=== PATIENT | female | born 1950 | race Caucasian/White ===

== ENCOUNTER 2019-04-29 18:35 | Inpatient (IN) | payer MEDICARE ==
[2019-04-29 18:58] LABS: #Basophils 0.1 thou/uL (0.0-0.2); #Eosinphils 0.2 thou/uL (0.0-0.7); #Lymphocytes 2.9 thou/uL (1.20-3.40); #Monocytes 0.7 thou/uL (0.11-0.59); #Neutrophils 4.4 thou/uL (1.40-6.50); %Basophils 1.1 % (0.0-1.0); %Eosinophils 2.3 % (0.0-10.0); %Lymphocytes 35.3 % (21.0-51.0); %Monocytes 8.9 % (0.0-10.0); %Neutrophils 52.5 % (42.0-75.0); Hemoglobin 14.3 g/dL (12.0-16.0); Mean Corpuscular HGB CONC 33.3 g/dL (32.0-36.0); Mean Corpuscular Hemoglobin 29.7 pg (27.0-31.0); Mean Corpuscular Volume 89.4 fL (78.0-98.0); Mean Platelet Volume 6.4 fL (7.4-10.4); Platelet Count 422 thou/uL (130-400); RBC Distribution Width 12.9 % (11.5-14.5); Red Blood Cell (RBC) Count 4.82 mill/uL (4.20-5.40); White Blood Cell (WBC) Count 8.3 thou/uL (4.8-10.8)
--- NOTE | 2019-04-29 19:01 | CT ---
CT Brain WO Con: 04/29/2019 12:00 AM CLINICAL HISTORY: Level 1 stroke with right-sided gait instability and strength deficits. IMAGING TECHNIQUE: Multiple CT images were obtained of the brain without IV contrast. COMPARISON: None. FINDINGS: Brain: No acute infarct or hemorrhage is evident. No midline shift. Ventricles: Normal. No hydrocephalus.. Skull: Intact.. Visualized Paranasal sinuses: There is mild mucosal thickening involving a posterior right ethmoid ai r cells.. Mastoid air cells:Clear. Extracranial soft tissues:Normal. IMPRESSION: No acute intracranial abnormality. Findings were called to Dr. Estevez at 6:58 PM on April 29, 2019.
[2019-04-29 19:03] LABS: INR-International Normal Ratio 0.9; PTT 25.3 SEC (22.9-36.1); Prothrombin Time 12.1 SEC (12.0-14.7)
[2019-04-29] MEDS ORDERED: Aspirin Chewable 81 MG TAB ONE (19:06)
[2019-04-29 19:17] LABS: ALT (SGPT) 27 U/L (8-55); AST (SGOT) 29 U/L (5-34); Albumin 4.5 g/dL (3.4-4.8); Alkaline Phosphatase 93 U/L (40-110); Anion Gap 20 mmol/L (10-20); BUN (Urea Nitrogen) 19 mg/dL (9.8-20.1); Bilirubin, Total 0.4 mg/dL (0.2-1.2); CK (CPK) 167 U/L (29-168); Calc. Creatinine Clearance 0 mL/min (70-130); Calcium 9.6 mg/dL (7.8-10.44); Carbon Dioxide 26 mmol/L (23-31); Chloride 96 mmol/L (98-107); Estimated GFR-MDRD 46; Globulin 3.7 g/dL (2.4-3.5); Glucose 175 mg/dL (80-115); Magnesium 1.9 mg/dL (1.6-2.6); Potassium 4.5 mmol/L (3.5-5.1); Protein, Total 8.2 g/dL (6.0-8.3); Sodium 137 mmol/L (136-145)
[2019-04-29 19:23] LABS: Bilirubin Negative (Negative); Blood, Urine Negative (Negative); Clarity Clear (Clear); Glucose, Urine (Dipstick) Normal (Negative); Leukocyte Negative Leu/uL (Negative); Nitrite Negative (Negative); Protein, Urine (Dipstick) Negative (Neg-Trace); Urobilinogen Normal mg/dL (Less than 2)
--- NOTE | 2019-04-29 19:37 | RAD ---
Chest AP view INDICATION: Shortness of breath and right-sided weakness COMPARISON: December 23, 2016 chest 2 view radiograph FINDINGS: Lungs:The lungs are clear Cardiac silhouette:Heart size remains upper limits of normal. Pulmonary vasculature:Normal Pleural spaces:No pleural effusion or pneumothorax is demonstrated. Upper abdomen:No abnormality seen. Osseous structures: No acute osseous abnormality. Additional findings:None. IMPRESSION: No acute cardiopulmonary abnormality.
[2019-04-29] MEDS ORDERED: hydrALAZINE 20 MG/ML VIAL SLOW IVP PRN (22:42)
[2019-04-29] MEDS ORDERED: Acetaminophen 650 MG Suppository PR PRN (22:45)
[2019-04-29] MEDS ORDERED: Ondansetron ODT 4 MG TAB PO PRN (22:45)
[2019-04-29] MEDS ORDERED: Sodium Chloride 0.9% 1,000 ML IV SCH ×2 (22:45→23:01)
[2019-04-29] MEDS ORDERED: Acetaminophen 325 MG TAB PO PRN (22:45)
[2019-04-29] MEDS ORDERED: Ondansetron PF 4 MG/2 ML Vial IVP PRN (22:45)
[2019-04-29] MEDS ORDERED: HumaLOG 300 UNITS/3 ML VIAL SC PRN ×2 (22:47)
[2019-04-29] MEDS ORDERED: Dextrose 50% Abboject 50 ML SYRINGE SLOW IVP PRN (22:47)
[2019-04-29] MEDS ORDERED: Dextrose 5% in Water 1,000 ML IV PRN (22:47)
[2019-04-29 23:18] LABS: Troponin I 0.014 ng/mL (< 0.028)
[2019-04-29 23:20] LABS: Amphetamine Not Detected (NotDetected); Barbiturates Screen Not Detected (NotDetected); Benzodiazepine Screen Not Detected (NotDetected); Cocaine Metabolite Screen Not Detected (NotDetected); Medtox Control Line Valid? VALID (VALID); Medtox Reader # READER 4; Methadone Not Detected (NotDetected); Methamphetamine Not Detected (NotDetected); Opiate Screen Not Detected (NotDetected); Oxycodone Screen Not Detected (NotDetected); Phencyclidine (PCP) Not Detected (NotDetected); THC/Cannabinoid Screen Not Detected (NotDetected); Tricyclic Screen Not Detected (NotDetected)
--- NOTE | 2019-04-30 00:11 | HP ---
CHIEF COMPLAINT: Right hand numbness and weakness. HISTORY OF PRESENT ILLNESS: Ms. Lebron is a 69-year-old woman who presents after experiencing sudden onset right hand numbness and weakness since she was using her phone. She states she felt as though she had no control of her hand and could not vulcanizer operator her phone or her jacket. She states her hand felt entirely numb and not her own. The patient is unsure how long this lasted, but according to her family, had also had an abnormal gait. The patient denies any other numbness or tingling elsewhere. States she was at a Halloween event with her grandchildren and children when this happened. She was brought to the hospital by her son. Shortly after arrival, her symptoms had resolved. In the emergency department, she was noted to have an elevated blood pressure of 169/84 on arrival. She had an EKG done showing normal sinus rhythm with a heart rate of 90. She was given aspirin [address] imaging of the head, which showed no acute intracranial abnormality. A chest x-ray was done showing no acute cardiopulmonary process. The patient was reported to still be "wobbly" on her feet when transferring from the stretcher to the bed on the floor. Otherwise, NIH done at bedside was 0. LABORATORY STUDIES: Done in the emergency department showed a normal full blood count. Potassium was 4.5, anion gap 20, BUN 19, creatinine 1.17, GFR 46, calcium 9.6. LFTs unremarkable. CK 167. Troponin negative x2. Urinalysis was done and negative. REVIEW OF SYSTEMS: The patient states she has felt odd in the last few days with having sudden feeling of claustrophobia at night and having to get up and go to the living room. Has also had episodes of dizziness lasting seconds while lying in bed. Denies any associated nausea or vomiting. Denies any double vision. Reports having a mild headache at this present time. All other review of systems negative. PAST MEDICAL HISTORY: 1. Hypertension. 2. Hyperlipidemia. 3. Aortic stenosis for which she sees Dr. Navarro. 4. Diabetes mellitus. PAST SURGICAL HISTORY: 1. Bilateral knee replacements. 2. Back surgery x2. SOCIAL HISTORY: The patient lives with her . Denies any alcohol consumption, tobacco use, or illicit drug use. FAMILY HISTORY: Noncontributory. ALLERGIES: LATEX AND DIAZEPAM. CURRENT MEDICATIONS: 1. Amlodipine. 2. Atorvastatin. 3. Vitamin D3. 4. Hydrochlorothiazide. 5. Lisinopril. 6. Multivitamin. 7. Sertraline. PHYSICAL EXAMINATION: GENERAL: The patient appears well developed, well nourished, is in no acute distress. VITAL SIGNS: Temperature 99.1, pulse 96, respirations 16, O2 saturation 97% on room air, blood pressure 182/80. HEENT: Normocephalic and atraumatic. Pupils are equal, round, and reactive to light. Sclerae without icterus. Extraocular movements intact. No nystagmus present. Oropharynx is clear. NECK: Supple without lymphadenopathy. LUNGS: Clear to auscultation bilaterally without wheezes, rales, or rhonchi. CARDIAC: Regular rate and rhythm. Audible murmur on exam. ABDOMEN: Soft, nontender, nondistended. Normoactive bowel sounds present. EXTREMITIES: No lower leg swelling or edema. NEUROLOGIC: Alert and oriented x3. No neuro deficits on exam. Sensation intact. Power 5/5 in both upper and lower extremities. IMPRESSION AND PLAN: Ms. Lebron is a pleasant 69-year-old woman who has been referred for management of the followin. Suspected transient ischemic attack. The patient with sudden right hand numbness and weakness that has resolved and a staggering gait that has nearly improved. CT of the head was unremarkable. We will obtain a CT angiogram of the head and neck. She does have an elevated creatinine of 1.47 and GFR of 46. I do not see that any IV fluids are given in the emergency department. Given contrast necessary for CT angiogram, we will give IV fluids. Echo ordered as well as Neuro consult. Fasting lipid panel in the morning. Continue to monitor. Bedside dysphagia screening completed and normal as per nurse. 2. Acute kidney injury. The patient with creatinine of 1.17, and GFR 46. Previously, her creatinine was 0.70 and GFR was 84 back in 2016. Again, we will give IV fluids. 3. Hypertension. Allow for permissive hypertension. P.r.n. hydralazine ordered with parameters. 4. Headache. We will give Tylenol. 5. Diabetes mellitus. Monitor glucose. Insulin sliding scale ordered. 6. GI prophylaxis. Famotidine 20 mg IV b.i.d. 7. Deep venous thrombosis prophylaxis. Mechanical SCDs. 8. Code status full. Her surrogate decision maker is her , Grabiel Lebron. 9. We will reconcile home medications once verified. The patient's case was discussed with the attending who agrees with the plan of care as described above. Job ID: [id number]
[2019-04-30 00:18] VITALS: BMI 34.2
[2019-04-30 01:37] LABS: Troponin I 0.011 ng/mL (< 0.028)
[2019-04-30 04:58] LABS: #Basophils 0.1 thou/uL (0.0-0.2); #Eosinphils 0.2 thou/uL (0.0-0.7); #Lymphocytes 2.7 thou/uL (1.20-3.40); #Monocytes 0.8 thou/uL (0.11-0.59); #Neutrophils 3.8 thou/uL (1.40-6.50); %Basophils 0.9 % (0.0-1.0); %Eosinophils 2.7 % (0.0-10.0); %Monocytes 10.4 % (0.0-10.0); Mean Corpuscular HGB CONC 33.1 g/dL (32.0-36.0); Mean Corpuscular Hemoglobin 29.8 pg (27.0-31.0); Mean Corpuscular Volume 90.1 fL (78.0-98.0); Mean Platelet Volume 6.3 fL (7.4-10.4); Platelet Count 370 thou/uL (130-400); RBC Distribution Width 12.8 % (11.5-14.5); Red Blood Cell (RBC) Count 4.35 mill/uL (4.20-5.40); White Blood Cell (WBC) Count 7.6 thou/uL (4.8-10.8)
[2019-04-30 05:20] LABS: Anion Gap 13 mmol/L (10-20); BUN (Urea Nitrogen) 18 mg/dL (9.8-20.1); Calc. Creatinine Clearance 104 mL/min (70-130); Calcium 9.1 mg/dL (7.8-10.44); Carbon Dioxide 28 mmol/L (23-31); Cardiac Risk 4.3 (Less than 4.5); Chloride 99 mmol/L (98-107); Cholesterol 176 mg/dl (< 200 Desired); Estimated GFR-MDRD 72; Glucose 154 mg/dL (80-115); HDL Cholesterol 41 mg/dL (>60 Neg Risk); LDL Cholesterol, Calculated 103 mg/dL; Potassium 3.8 mmol/L (3.5-5.1); Sodium 136 mmol/L (136-145); Triglycerides 161 mg/dL (Less than 150)
--- NOTE | 2019-04-30 08:01 | CT ---
PRELIMINARY REPORT/[facility]/EMERGENCY AFTER HOURS PROCEDURE: PROCEDURE INFORMATION: Exam: CT Angiography Head Without And With Contrast Exam date and time: 04/30/2019 3:00 AM Clinical history: 69 years old, female; Weakness; Patient HX: Tia/cva ; shopping at store when right sided gait instability and strength defecits. TECHNIQUE: Imaging protocol: Computed tomographic angiography of the head without and with intravenous contrast. 3D rendering: MIP reconstructed images were created and reviewed. Other technique: STROKE PROTOCOL was implemented. COMPARISON: No relevant prior studies available. FINDINGS: Right internal carotid artery: There is atherosclerotic calcification of the intracranial carotid art eries. No aneurysm. 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 A mcclure nt anterior communicating artery is noted. Right middle cerebral artery: Unremarkable. No occlusion or significant stenosis. No aneurysm. Right posterior cerebral artery: Right GLOBAL COORDINATOR fills via a prominent right posterior communicating artery , normal variant. Right vertebral artery: Unremarkable. No occlusion or significant stenosis. No aneurysm. Left internal carotid artery: There is atherosclerotic calcification of the intracranial carotid jose chloe. No aneurysm. Left anterior cerebral artery: Unremarkable. No occlusion or significant stenosis. No aneurysm. Left middle cerebral artery: Unremarkable. No occlusion or significant stenosis. No aneurysm. Left posterior cerebral artery: Unremarkable. No occlusion or significant stenosis. No aneurysm. Left vertebral artery: Unremarkable. No occlusion or significant stenosis. No aneurysm. Basilar artery: Unremarkable. No occlusion or significant stenosis. No aneurysm. HEAD: Brain: Unremarkable. No hemorrhage. No significant white matter disease. No edema. Ventricles: Normal. No ventriculomegaly. Bones/joints: Unremarkable. No acute fracture. Sinuses: Visualized sinuses are normal. No fluid levels. Mastoid air cells: Visualized mastoids are normal. No mastoid effusion. Soft tissues: Unremarkable. IMPRESSION: 1. No large intracranial artery aneurysm, dissection or occlusion. 2. No acute intracranial hemorrhage. ASSESSMENT: ASPECTS ([place] Stroke Program Early CT Score) is 10. PROCEDURE INFORMATION: Exam: CT Angiography Neck With Contrast Exam date and time: 04/30/2019 3:00 AM Clinical history: 69 years old, female; Weakness; Patient HX: Tia/cva ; shopping at store when right sided gait instability and strength defecits. TECHNIQUE: Imaging protocol: Computed tomography angiography of the neck with intravenous contrast. 3D rendering : MIP reconstructed images were created and reviewed. COMPARISON: No relevant prior studies available. FINDINGS: VASCULATURE: Right common carotid artery: Unremarkable. No stenosis. No dissection or occlusion. Right internal carotid artery: Unremarkable extracranial segment. No stenosis. No dissection or occlu jillian. Right external carotid artery: Unremarkable. No occlusion or stenosis of the origin. Right vertebral artery: Unremarkable. No stenosis. No dissection or occlusion. Left common carotid artery: Unremarkable. No stenosis. No dissection or occlusion. Left internal carotid artery: There is mild atherosclerotic calcification at the LEFT carotid bulb re sulting in mild stenosis at the origin of the LEFT internal carotid artery. Left external carotid artery: Unremarkable. No occlusion or stenosis of the origin. Left vertebral artery: Unremarkable. No stenosis. No dissection or occlusion. NECK: Bones/joints: The cervical spine demonstrates moderate degenerative changes at multiple levels. Soft tissues: Normal. No significant soft tissue swelling. IMPRESSION: No acute vascular pathology. COMMENT: Reference per NASCET criteria for degree of stenosis: Mild: less than 50% stenosis. Moderate: 50- 69% stenosis. Severe: 70-94% stenosis. Near occlusion: 95-99% stenosis. Thank you for allowing us to participate in the care of your patient. Dictated and Authenticated by: Anand Martin MD 04/30/2019 3:33 AM Central Time ([place] & [place]) FINAL REPORT CT ANGIOGRAM HEAD AND NECK WITH AND WITHOUT CONTRAST: INDICATION: Right-sided gait instability and strength deficit COMPARISON: None TECHNIQUE: CT angiogram of the head and neck are performed in the axial plane. Three-dimensional reformatted yady ges are submitted for interpretation. FINDINGS: At the level of the [place], there is no significant stenosis, aneurysm or occlusion. Diminu tive right A1 segment likely represents congenital variant. Patent ACOM is noted. There is no significant stenosis with regards to the cervical carotid arteries based upon NASCET crit eria. Visualized brain parenchyma and soft tissue neck structures are unremarkable. IMPRESSION: 1. This report is in agreement with the preliminary report by [facility]. 2. No significant vascular pathology in the cervical carotid arteries or at the level of [place]. Transcribed Date/Time: 04/30/2019 8:13 AM
[2019-04-30] MEDS ORDERED: Aspirin Chewable 81 MG TAB PO SCH (09:00)
[2019-04-30] MEDS ORDERED: Aspirin 81 mg Enteric Coated Tablet PO SCH (09:00)
[2019-04-30] MEDS ORDERED: Famotidine/PF 20 mg/2ml Vial SLOW IVP SCH (09:00)
[2019-04-30] MEDS: Famotidine 20 MG TAB PO SCH (09:50)
[2019-04-30] MEDS ORDERED: Iopamidol 370 76% 100 ML VIAL ONE (12:00)
[2019-04-30] MEDS ORDERED: Lorazepam 2 MG/ML VIAL SLOW IVP SCH ×2 (12:30→13:15)
--- NOTE | 2019-04-30 14:48 | CON ---
DATE OF TELEMEDICINE CONSULTATION: 04/30/2019 CHIEF COMPLAINT: Right-sided numbness. HISTORY OF PRESENT ILLNESS: The patient is a 69-year-old left-handed lady who reports currently all she has is a headache. She was having at a Halloween caravan with her family and she could not nut picker her phone with her right hand. She went outside, called her and he was walking towards her. Her son decided he needed to bring her to the ER. Her numbness and weakness lasted 15 to 20 minutes. She is still feeling tingling and some headache today. Usually she takes 81 mg of aspirin. PREVIOUS MEDICAL HISTORY: She has aortic stenosis, hypertension, hyperlipidemia , diabetes, and she is on metformin. PAST SURGICAL HISTORY: She had two knee replacements and she had back surgery. FAMILY HISTORY: One brother is 75, he has hypertension, multiple medical issues , and chronic back pain. She has a 65-year-old sister who is hypochondriac. Her parents and there is no significant medical history with her parents. She has four sons, all of them are healthy. They age from 49 to 34 years of age. No family history of stroke. ALLERGIES: LATEX AND DIAZEPAM. CURRENT MEDICATIONS: At home 1. Amlodipine. 2. Atorvastatin. 3. Vitamin D3. 4. Hydrochlorothiazide. 5. Lisinopril. 6. Multivitamin. 7. Sertraline. REVIEW OF SYSTEMS: PULMONARY: Negative for shortness of breath and cough. GI: Negative for any nausea, vomiting, or diarrhea. OPHTHALMOLOGIC: Negative for any vision problems in either. URINARY: Negative for bladder issues. DERMATOLOGIC: Negative for any skin lesions. NEUROLOGIC: Positive for numbness. LABORATORY DATA: White count is 7.6, hemoglobin 13, hematocrit 39.2, platelet count 370. Chemistry: Sodium 136, potassium 3.8, chloride 99, carbon bicarb 28, BUN 18, creatinine 0.79, glucose 154. Urine tox screen is negative. Urinalysis is also negative. Her CT angiogram did not show any evidence of vaso-occlusive disease on the CTA of the head and neck area. MRI is pending. PHYSICAL EXAMINATION: VITAL SIGNS: Temperature 97.4, pulse is 81, blood pressure 156/63, O2 saturation 97. GENERAL APPEARANCE: Well-built, well-nourished lady. CHEST: Clear vesicular breathing. CARDIOVASCULAR: S1, S2 heard. No murmurs. ABDOMEN: Soft, nontender. NEUROLOGIC: Higher intellectual functions normal. Orientation to time and place and person. Cranial nerves, normal extraocular movements. Face is normal bilaterally to touch. No facial asymmetry noted. Tongue midline. No atrophy noted. Normal elevation of palate. Normal hearing to finger rub bilaterally. Pupils are 2 mm, reactive. Motor bulk normal. Tone normal. Strength 5/5 in iliopsoas, hamstrings, quadriceps, ankle dorsiflexion, plantar flexion, deltoid, biceps, triceps, wrist extension and flexion, finger extension and flexion bilaterally and sensory examination normal to touch bilaterally. Cerebellar, normal [id number] and [id number]. Deep tendon reflexes 2+ throughout. IMPRESSION: The patient is a 69-year-old lady with sudden onset of right-sided numbness and incoordination and difficulty using her right hand. All her symptoms lasted 15 to 20 minutes. She still has some residual tingling and headache. This time, her examination is normal. Diagnosis is likely transient ischemic attack. She is currently pending MRI. RECOMMENDATIONS: Please complete her MRI of the brain and echocardiogram. Increase aspirin to 325 mg once daily along with statin. Please call me if you have any further questions. Job ID: [id number] [facility]
--- NOTE | 2019-04-30 15:51 | MRI ---
BRAIN MRI WITHOUT CONTRAST: HISTORY: Hit ischemic attack. Gait instability. Right-sided weakness. COMPARISON: None. FINDINGS: Calvarial marrow signal intensity: Appropriate T1 signal. Gradient echo sequence: No hemorrhage. Brain parenchyma: No mass, mass effect or midline shift. Brain volume, age-appropriate. Cortical decker-white matter differentiation: Preserved. Restricted diffusion: Small foci of cortical restricted diffusion involving the left precentral sulcu s and left parietal lobe. Additional areas of restricted diffusion are noted in the posterior left mora radiata. White matter signal intensities:No significant T2 or FLAIR white matter hyperintensities. Sinuses: Adequate aeration of the paranasal sinuses and mastoid air cells. IMPRESSION: Small foci of restricted diffusion involving the left white matter and left cortex as described above . Distribution suggests possible embolic phenomenon of uncertain origin. There is calcified plaque involving the left carotid bifurcation and proximal left internal carotid artery. Definite soft plaqu e is not appreciated. Correlate for possible cardiogenic source. Transcribed Date/Time: 04/30/2019 3:56 PM
[2019-04-30] MEDS ORDERED: Atorvastatin Calcium 40 MG TAB PO SCH (21:00)
--- NOTE | 2019-04-30 22:11 | PDOC.HOSPP ---
- Subjective Subjective: Doing well. Wants to go home. All symptoms have resolved. - Objective Vital Signs & Weight: Vital Signs (12 hours) Temp Pulse Resp BP BP Pulse Ox 04/30/19 20:00 97.5 F L 80 18 181/65 H 99 04/30/19 15:58 97.5 F L 86 16 153/69 H 97 04/30/19 11:48 97.4 F L 81 16 156/63 H 97 Weight Weight 218 lb 9.6 oz I&O: 04/29/19 04/30/19 05/01/19 06:59 06:59 06:59 Intake Total 480 Balance 480 Result Diagrams: 04/30/19 04:43 04/30/19 04:43 Additional Labs: Accuchecks 04/30/19 04/30/19 04/30/19 19:18 16:46 11:11 POC Glucose 143 H 177 H 133 H 04/30/19 06:22 POC Glucose 123 H Hospitalist ROS - Medication Medications: Active Medications Generic Name Dose Route Start Last Admin Trade Name Nupur PRN Reason Stop Dose Admin Aspirin 81 mg 04/30/19 09:00 04/30/19 09:50 Ecotrin PO 81 mg DAILY J CARLOS Administration Famotidine 20 mg 04/30/19 09:00 04/30/19 09:50 Pepcid PO 20 mg DAILY J CARLOS Administration Sodium Chloride 10 ml 04/30/19 09:00 04/30/19 09:50 Flush - Normal Saline IVF 10 ml Q12HR J CARLOS Administration - Exam General Appearance: NAD, awake alert Neck: supple, symmetric, no JVD, no thyromegaly, no lymphadenopathy, no carotid bruit Heart: RRR, no gallops, no rubs, normal peripheral pulses, murmur present ( Systolic.), II/IV Respiratory: CTAB, no wheezes, no rales, no ronchi, normal chest expansion, no tachypnea, normal percussion Gastrointestinal: soft, non-tender, non-distended Skin: normal turgor Neurological: cranial nerve grossly intact, no focal deficits Musculoskeletal: normal tone, normal strength, no muscle wasting Psychiatric: normal affect, normal behavior, A&O x 3 Hosp A/P (1) CVA (cerebral vascular accident) Code(s): I63.9 - CEREBRAL INFARCTION, UNSPECIFIED Status: Acute (2) Aortic stenosis Code(s): I35.0 - NONRHEUMATIC AORTIC (VALVE) STENOSIS Status: Acute (3) HLD (hyperlipidemia) Code(s): E78.5 - HYPERLIPIDEMIA, UNSPECIFIED Status: Acute (4) HTN (hypertension) Code(s): I10 - ESSENTIAL (PRIMARY) HYPERTENSION Status: Acute - Plan Long discussion with the patient. The MRI shows a new small L CVA. All symptoms resolved. Report indicates concern for possible embolic event and queries a cardiac source. Echo has moderate Ao stenosis. Will continue to monitor overnight. Keep on full dose aspirin. Cardiology consult and Neuro consult follow up.
[2019-05-01] MEDS ORDERED: Non-Formulary Item 1 EACH (Irbesartan [Irbesartan] 300 MG) PO SCH (09:00)
[2019-05-01] MEDS ORDERED: Hydrochlorothiazide 25 MG TAB PO SCH (09:00)
[2019-05-01] MEDS ORDERED: Amlodipine 5 MG TAB PO SCH (09:00)
[2019-05-01] MEDS ORDERED: Aspirin 81 mg Enteric Coated Tablet PO SCH (09:00)
[2019-05-01] MEDS ORDERED: Losartan 25 MG TAB PO SCH (09:00)
[2019-05-01] MEDS ORDERED: Non-Formulary Item 1 EACH (Hydrochlorothiazide [Hydrochlorothiazide] 50 MG) PO SCH (09:00)
[2019-05-01] MEDS: Famotidine 20 MG TAB PO SCH (10:21)
[2019-05-01 12:03] VITALS: BP 140/77; TEMP 98.3
--- NOTE | 2019-05-01 14:24 | CON ---
DATE OF CONSULTATION: HISTORY OF PRESENT ILLNESS: The patient is a 69-year-old woman, who presented with right arm weakness and numbness. The patient has a previous history of aortic stenosis. She underwent a cardiac evaluation in October of 2015. She was found to have normal left ventricular systolic function with normal coronary arteries. The patient has been following with Dr. Navarro for aortic stenosis. She was in her usual state of health when she acutely felt weakn and numbness in her right arm. The patient was brought to the emergency room. The patient was diagnosed with a TIA. The patient denied having any palpitations or chest discomfort. PAST MEDICAL HISTORY: 1. Aortic stenosis. 2. Hypertension. 3. Dyslipidemia. 4. Diabetes mellitus. PAST SURGICAL HISTORY: Knee replacement and back surgery. SOCIAL HISTORY: Nonsmoker. ALLERGIES: LATEX AND DIAZEPAM. MEDICATION ON ADMISSION: See nursing list. REVIEW OF SYSTEMS: Ten-point system otherwise unremarkable. PHYSICAL EXAMINATION: GENERAL: Obese woman, in no acute distress. VITAL SIGNS: Her blood pressure is 140/77. NECK: No jugular venous distention. No carotid bruits. LUNGS: Clear to auscultation. HEART: Regular rate and rhythm. Normal S1, S2. 2/6 systolic murmur. ABDOMEN: Nondistended. EXTREMITIES: Showed no edema. Vascular and radial pulses are 2+. LABORATORY DATA: Her sodium was 136, potassium 3.8, chloride 99, bicarbonate 28 , BUN 18, creatinine 0.79. Her white blood cell count was 7.6, hemoglobin 13.0, hematocrit 39.2, platelets are 370. Her EKG revealed normal sinus rhythm with a nonspecific ST abnormality. MRA revealed no evidence of carotid artery disease. Echocardiogram revealed normal left ventricular ejection fraction of 55% to 60% with moderate to severe aortic stenosis. No thrombus was noted. IMPRESSION: 1. Transient ischemic attack. 2. Aortic stenosis. 3. History of normal coronary arteries. 4. Hypertension. 5. Diabetes mellitus. 6. Dyslipidemia. 7. Obesity. This patient presented with a transient ischemic attack. She was evaluated by Neurology who apparently recommended that she increase her aspirin to 325. There is no evidence of thrombus noted on her echocardiogram. There is no evidence of any arrhythmias. We would recommend follow up with a neurologist. We will also recommend the patient to have an outpatient monitor to evaluate for any significant arrhythmias. We will follow this patient with you. Job ID: [id number] [facility]
--- NOTE | 2019-05-04 00:23 | PQF ---
MEÑO TIDWELL DAVID R MD [id number] [address] [place] [address] [id number] CLINICAL DOCUMENTATION CLARIFICATION FORM: POST DISCHARGE Addendum to original discharge summary date: ____ Late entry note date: __ DATE: 05/04/19 ATTN: Anand Bey Please exercise your independent, professional judgment in responding to the clarification form. Clinical indicators are provided on the bottom of this form for your review Please check appropriate box(s): Conflicting documentation was noted in the Medical Record, please clarify if patient is being treated/monitored for: [ ] TIA [x ] Acute CVA [ ] Other diagnosis [ ] Unable to determine In addition, please specify: Present on Admission (POA): [ x ] Yes [ ] No [ ] Unable to determine For continuity of documentation, please document condition throughout progress notes and discharge summary. Thank You. CLINICAL INDICATORS - SIGNS / SYMPTOMS/ LABS H&P p1 04/29 Dr Pham Presents after experiencing sudden onset right hand numbness and weakness since she was using her phone H&P p1 04/29 Dr Pham In ED, she was noted to have an elevated BP of 169/84 on arrival H&P p2 04/29 Dr Pham Suspect transient sichemic attack H&P p2 04/29 Dr Pham The patient sudden right hand numbnaess andweakness that has resolved and staggering gait has damon improved H&P p3 04/[address] head was unremarkable Hospitalist PN p3 04/30 Dr Redman MRU shows a new small L CVA. All symptoms resolved RISK FACTORS H&P p1 04/29 - 69-year-old woman H&P p1 04/29 - Hypetension H&P p1 04/29 - Hyperlipidemia TREATMENT H&P p3 04/[address] angiogram Neurologist Consult 04/30 Rosemary Bradford Neurosurgeon Consult 05/01 Dr Edge Hospitalist PN p3 04/30 Keep on full dose of Aspirin (This form is maintained as a part of the permanent medical record) 2014 [employer], [employer]. All Rights Reserved [email or web address] [not provided] [email or web address]
== END 2019-05-01 16:00 | disposition home or self-care (01) | DRG 65 ==
LOC: ERS 18:35 → 2SE 21:57
PROVIDERS: ADMIT Internal Medicine; ATTEND Internal Medicine
DX: I63.9 Cerebral infarction, unspecified (principal); N17.9 Acute kidney failure, unspecified; I10 Essential (primary) hypertension; E11.9 Type 2 diabetes mellitus without complications; Z96.659 Presence of unspecified artificial knee joint; I35.0 Nonrheumatic aortic (valve) stenosis; E78.5 Hyperlipidemia, unspecified; E66.9 Obesity, unspecified; Z68.34 Body mass index [BMI] 34.0-34.9, adult; Z79.899 Other long term (current) drug therapy; R20.0 Anesthesia of skin; R29.700 NIHSS score 0; R40.2362 Coma scale, best motor response, obeys commands, at arrival to emergency department; R40.2142 Coma scale, eyes open, spontaneous, at arrival to emergency department; R40.2252 Coma scale, best verbal response, oriented, at arrival to emergency department
CPT/HCPCS: 36415; 36416; 70450; 70496; 70498; 70551; 71045; 80048; 80053; 80061; 80306; 81003; 82550; 83735; 83880; 84443; 84484; 85025; 85610; 85730; 93005; 93306; J2060; Q9967

== ENCOUNTER 2020-05-10 10:40 | Outpatient (CLI) | payer MEDICARE ==
[2020-05-10 13:45] LABS: #Basophils 0.1 10x3/uL (0.0-0.2); #Eosinphils 0.2 10x3/uL (0.0-0.5); #Monocytes 0.8 10x3/uL (0.0-1.1); #Neutrophils 6.4 10x3/uL (1.5-8.4); %Basophils 0.9 % (0.0-2.0); %Eosinophils 2.1 % (0.0-6.0); %Lymphocytes 22.9 % (18.0-47.0); %Monocytes 7.9 % (0.0-10.0); %Neutrophils 65.9 % (40.0-75.0); Hemoglobin 13.9 g/dL (12.0-16.0); Mean Corpuscular Hemoglobin 29.5 PG (27.0-33.0); Mean Corpuscular Volume 89.4 fl (80.0-100.0); Mean Platelet Volume 8.9 fl (7.4-10.4); Platelet Count 400 10x3/uL (130-400); RBC Distribution Width 14.2 % (11.5-14.5); Red Blood Cell (RBC) Count 4.71 10x6/uL (3.90-5.20); White Blood Cell (WBC) Count 9.7 10x3/uL (4.5-11.0)
[2020-05-10 14:01] LABS: ALT (SGPT) 28 U/L (8-55); AST (SGOT) 18 U/L (5-34); Albumin 4.3 g/dL (3.4-4.8); Alkaline Phosphatase 75 U/L (40-110); Anion Gap 18 mmol/L (10-20); BUN (Urea Nitrogen) 14 mg/dL (9.8-20.1); Bilirubin, Total 0.5 mg/dL (0.2-1.2); Calc. Creatinine Clearance 0 mL/min (70-130); Calcium 9.5 mg/dL (7.8-10.44); Carbon Dioxide 27 mmol/L (23-31); Chloride 97 mmol/L (98-107); Estimated GFR-MDRD 79; Globulin 2.9 g/dL (2.4-3.5); Glucose 97 mg/dL (83-110); Potassium 4.3 mmol/L (3.5-5.1); Protein, Total 7.2 g/dL (6.0-8.3); Sodium 138 mmol/L (136-145)
[2020-05-11 12:09] LABS: SARS-CoV-2 MS2 Positive; SARS-CoV-2 N Gene Negative; SARS-CoV-2 S Gene Negative; SARS-CoV-2 by NAA Not Detected (NotDetected); SARS-CoV-2 orf1ab Negative
== END 2020-05-10 10:41 | disposition home or self-care (01) ==
LOC: LABBT 10:40
PROVIDERS: ATTEND Internal Medicine Cardiovascular Disease
DX: Z01.812 Encounter for preprocedural laboratory examination (principal); I35.0 Nonrheumatic aortic (valve) stenosis; Z20.828 Contact with and (suspected) exposure to other viral communicable diseases
CPT/HCPCS: 80053; 85025; U0003; 87635

== ENCOUNTER 2020-05-15 05:53 | Day surgery (SDC) | payer MEDICARE ==
[2020-05-12 12:49] VITALS: BMI 36.8
[2020-05-15] MEDS ORDERED: Iopamidol 370 76% 100 ML VIAL ONE (15:05)
== END 2020-05-15 13:55 | disposition home or self-care (01) ==
LOC: CCL 05:53
PROVIDERS: ATTEND Internal Medicine Cardiovascular Disease
PROC: 4A023N7 Measurement of Cardiac Sampling and Pressure, Left Heart, Percutaneous Approach (ICD-10-PCS; principal; 2020-05-15)
PROC: B2111ZZ Fluoroscopy of Multiple Coronary Arteries using Low Osmolar Contrast (ICD-10-PCS; 2020-05-15)
DX: I25.10 Atherosclerotic heart disease of native coronary artery without angina pectoris (principal); I35.0 Nonrheumatic aortic (valve) stenosis; I10 Essential (primary) hypertension; E78.5 Hyperlipidemia, unspecified; E11.9 Type 2 diabetes mellitus without complications; G47.33 Obstructive sleep apnea (adult) (pediatric); Z79.01 Long term (current) use of anticoagulants; Z79.84 Long term (current) use of oral hypoglycemic drugs; Z79.899 Other long term (current) drug therapy; Z86.73 Personal history of transient ischemic attack (TIA), and cerebral infarction without residual deficits; Z88.8 Allergy status to other drugs, medicaments and biological substances; Z91.040 Latex allergy status
CPT/HCPCS: 76942; 93457; J1644; Q9967

== ENCOUNTER 2020-07-12 09:25 | Outpatient (CLI) | payer MEDICARE ==
--- NOTE | 2020-07-12 11:57 | CT ---
CT NECK SOFT TISSUES WITH CONTRAST: DATE: 07/12/2020. HISTORY: A 70-year-old female with ICD-10: K11.20, sialadenitis of submandibular gland. Left jaw pain. FINDINGS: No high-grade DJD of TMJs. No fracture or destructive osseous lesion involving mandible or maxilla. No dental abscess identified. No periapical osseous lucencies in upper or lower jaw. Bilateral submandibular glands are symmetrically normal in size, density, and enhancement. No surrou nding fat stranding. No evidence of sialadenitis or sialolithiasis, or ectasia of Stensen's ducts or Otero's ducts. There are calcifications in the right palatine tonsil. Bilateral palatine tonsils are symmetrically mildly enlarged. No enlargement of lingual tonsil or adenoids. The submandibular, parotid, carotid, parapharyngeal, it network architect, sublingual, retropharyngeal, periver tebral, and posterior cervical, spaces, are unremarkable. No gross consolidation at lung apices. Unremarkable larynx. Nonspecific right thyroid nodules. Multilevel high-grade facet DJD bilaterally, right worse than left. Degenerative disk disease at mid and lower levels. No cervical lymphadenopathy. Bilateral tympanomastoid cavities are grossly clear. There is opacification of some of the right posterior ethmoid air cells. The rest of the paranasal s inuses are grossly clear. IMPRESSION: 1. No pathology of submandibular glands identified. 2. Bilaterally symmetrical enlargement of palatine tonsils. 3. Cervical spondylosis. POS: [facility]
[2020-07-12] MEDS ORDERED: Iopamidol-370 76% 500 ML 1 ML ONE (14:04)
== END 2020-07-12 09:26 | disposition home or self-care (01) ==
LOC: BICCT 09:25
PROVIDERS: ATTEND Otolaryngology Plastic Surgery within the Head & Neck
DX: K11.20 Sialoadenitis, unspecified (principal); M47.812 Spondylosis without myelopathy or radiculopathy, cervical region; J35.1 Hypertrophy of tonsils
CPT/HCPCS: 70491; 82565

== ENCOUNTER 2020-12-06 13:51 | Outpatient (CLI) | payer MEDICARE | END 2020-12-06 13:52 | disposition home or self-care (01) | LOC: BICMAMMO 13:51 | PROVIDERS: ATTEND Obstetrics & Gynecology | DX: Z12.31 Encounter for screening mammogram for malignant neoplasm of breast (principal); Z80.3 Family history of malignant neoplasm of breast; Z91.89 Other specified personal risk factors, not elsewhere classified | CPT/HCPCS: 77063; 77067 ==

== ENCOUNTER 2021-01-04 10:23 | Outpatient (CLI) | payer MEDICARE | END 2021-01-04 10:24 | disposition home or self-care (01) | LOC: BICRAD 10:23 | PROVIDERS: ATTEND Physician Assistant | DX: R06.02 Shortness of breath (principal) | CPT/HCPCS: 36415; 71046; 80053; 83880; 84443; 85025; 85379 ==

== ENCOUNTER 2021-02-10 18:57 | Observation (INO) | payer MEDICARE ==
[2021-02-10] MEDS ORDERED: Lidocaine 1% (PF) 30 ML VIAL ONE (19:15)
[2021-02-10] MEDS ORDERED: Morphine 4 MG/ML VIAL ONE ×2 (19:35→21:05)
[2021-02-10] MEDS ORDERED: Ondansetron PF 4 MG/2 ML Vial ONE (19:36)
[2021-02-10] MEDS ORDERED: Propofol 1,000 MG/100 ML VIAL IV ONE ×2 (20:07→20:08)
[2021-02-10 21:06] LABS: #Eosinphils 0.1 thou/uL (0.0-0.7); #Monocytes 0.6 thou/uL (0.11-0.59); #Neutrophils 11.7 thou/uL (1.40-6.50); %Basophils 0.4 % (0.0-1.0); %Eosinophils 0.4 % (0.0-10.0); %Lymphocytes 7.5 % (21.0-51.0); %Monocytes 4.6 % (0.0-10.0); %Neutrophils 87.1 % (42.0-75.0); Hemoglobin 12.2 g/dL (12.0-16.0); Mean Corpuscular Hemoglobin 29.1 pg (27.0-31.0); Mean Platelet Volume 6.6 fL (7.4-10.4); Platelet Count 309 thou/uL (130-400); RBC Distribution Width 13.6 % (11.5-14.5); Red Blood Cell (RBC) Count 4.18 mill/uL (4.20-5.40); White Blood Cell (WBC) Count 13.5 thou/uL (4.8-10.8)
[2021-02-10 21:15] LABS: INR-International Normal Ratio 1.1; Prothrombin Time 14.2 sec (12.0-14.7)
[2021-02-10 21:16] LABS: PTT 29.6 sec (22.9-36.1)
[2021-02-10] MEDS ORDERED: Dextrose 5% in Water 1,000 ML IV PRN (21:27)
[2021-02-10] MEDS ORDERED: Dextrose 50% Abboject 50 ML SYRINGE SLOW IVP PRN (21:27)
[2021-02-10] MEDS ORDERED: Ondansetron PF 4 MG/2 ML Vial IVP PRN (21:27)
[2021-02-10 21:28] LABS: ALT (SGPT) 28 U/L (8-55); AST (SGOT) 19 U/L (5-34); Albumin 4.1 g/dL (3.4-4.8); Alkaline Phosphatase 70 U/L (40-110); Anion Gap 15 mmol/L (10-20); BUN (Urea Nitrogen) 12 mg/dL (9.8-20.1); Bilirubin, Total 0.4 mg/dL (0.2-1.2); Calc. Creatinine Clearance 0 mL/min (70-130); Calcium 9.1 mg/dL (7.8-10.44); Carbon Dioxide 24 mmol/L (23-31); Chloride 103 mmol/L (98-107); Glucose 145 mg/dL (83-110); Potassium 3.5 mmol/L (3.5-5.1); Protein, Total 7.1 g/dL (5.8-8.1); Sodium 138 mmol/L (136-145)
[2021-02-10] MEDS ORDERED: Cyclobenzaprine 10 MG TAB PO PRN (21:32)
[2021-02-10] MEDS ORDERED: traMADol HCl 50 MG TAB PO PRN (21:32)
[2021-02-10] MEDS: Acetaminophen 500 MG TAB PO SCH (23:54)
[2021-02-10] MEDS: traMADol HCl 50 MG TAB PO SCH (23:55)
[2021-02-10] MEDS: hydrALAZINE 20 MG/ML VIAL SLOW IVP PRN (23:56)
[2021-02-11 00:13] VITALS: BMI 35.5
[2021-02-11 00:42] LABS: SARS-CoV-2 NAA Rapid Test Not Detected (NotDetected)
[2021-02-11] MEDS: traMADol HCl 50 MG TAB PO SCH (05:00)
[2021-02-11] MEDS: Acetaminophen 500 MG TAB PO SCH ×2 (05:01→12:49)
[2021-02-11] MEDS: hydrALAZINE 20 MG/ML VIAL SLOW IVP PRN (08:47)
[2021-02-11] MEDS ORDERED: Losartan 25 MG TAB PO SCH (09:00)
[2021-02-11] MEDS ORDERED: Alogliptin 25 MG TAB PO SCH (09:00)
[2021-02-11] MEDS ORDERED: Senokot S 8.6-50 MG TAB PO SCH (09:00)
[2021-02-11] MEDS ORDERED: Famotidine 20 MG TAB PO SCH (09:00)
[2021-02-11] MEDS ORDERED: Gabapentin 300 MG CAP PO SCH (09:00)
[2021-02-11] MEDS ORDERED: Polyethylene Glycol 3350 17 GM Packet PO SCH (09:00)
[2021-02-11] MEDS ORDERED: Cholecalciferol 1,000 UNITS (25 MCG) TAB PO SCH (09:00)
[2021-02-11] MEDS ORDERED: Atorvastatin Calcium 20 MG TAB PO SCH (09:00)
[2021-02-11] MEDS ORDERED: Ibuprofen 600 MG TAB PO SCH (09:45)
[2021-02-11 11:34] VITALS: BP 171/74; TEMP 99.1
[2021-02-11] MEDS ORDERED: traMADol HCl 50 MG TAB PO SCH (12:00)
== END 2021-02-11 15:03 | disposition home or self-care (01) ==
LOC: ERS 18:57 → SURG B 21:02 → INTOOBSV 21:02
PROVIDERS: ADMIT Specialist; ATTEND Specialist
DX: S52.571A Other intraarticular fracture of lower end of right radius, initial encounter for closed fracture (principal); S01.111A Laceration without foreign body of right eyelid and periocular area, initial encounter; S52.611A Displaced fracture of right ulna styloid process, initial encounter for closed fracture; M85.821 Other specified disorders of bone density and structure, right upper arm; M81.0 Age-related osteoporosis without current pathological fracture; S09.8XXA Other specified injuries of head, initial encounter; I35.0 Nonrheumatic aortic (valve) stenosis; I10 Essential (primary) hypertension; E78.00 Pure hypercholesterolemia, unspecified; I48.91 Unspecified atrial fibrillation; M25.78 Osteophyte, vertebrae; I25.10 Atherosclerotic heart disease of native coronary artery without angina pectoris; E11.9 Type 2 diabetes mellitus without complications; E78.5 Hyperlipidemia, unspecified; G89.11 Acute pain due to trauma; Z86.73 Personal history of transient ischemic attack (TIA), and cerebral infarction without residual deficits; Z79.01 Long term (current) use of anticoagulants; Z79.02 Long term (current) use of antithrombotics/antiplatelets; Z79.84 Long term (current) use of oral hypoglycemic drugs; Z79.899 Other long term (current) drug therapy; Z88.8 Allergy status to other drugs, medicaments and biological substances; Z91.040 Latex allergy status; Z95.2 Presence of prosthetic heart valve; Z96.653 Presence of artificial knee joint, bilateral; Z20.822 Contact with and (suspected) exposure to COVID-19; W18.30XA Fall on same level, unspecified, initial encounter
CPT/HCPCS: 12011; 25600; 70450 ×2; 72125; 73110; 80053; 82962; 85025; 85610; 85730; 93005; 93798; 96374; 96375; 96376; 97116; 97139; 99285; U0002; U0005; 36415; 36416; G0390; J0360; J2001; J2270; J2405; J2704

== ENCOUNTER 2022-11-05 11:44 | Outpatient (CLI) | payer MEDICARE | END 2022-11-05 11:45 | disposition home or self-care (01) | LOC: SCSMRI 11:44 | PROVIDERS: ATTEND Anesthesiology Pain Medicine | DX: M51.16 Intervertebral disc disorders with radiculopathy, lumbar region (principal); Z98.890 Other specified postprocedural states | CPT/HCPCS: 72148 ==

== ENCOUNTER 2022-11-11 14:52 | Outpatient (CLI) | payer MEDICARE | END 2022-11-11 14:53 | disposition home or self-care (01) | LOC: TBSIIMAG 14:52 | PROVIDERS: ATTEND Anesthesiology Pain Medicine | DX: S73.191A Other sprain of right hip, initial encounter (principal) ==

== ENCOUNTER 2023-06-02 14:54 | Outpatient (CLI) | payer MEDICARE | END 2023-06-02 14:55 | disposition home or self-care (01) | LOC: BICMAMMO 14:54 | PROVIDERS: ATTEND Obstetrics & Gynecology | DX: Z12.31 Encounter for screening mammogram for malignant neoplasm of breast (principal); Z91.89 Other specified personal risk factors, not elsewhere classified; Z80.3 Family history of malignant neoplasm of breast | CPT/HCPCS: 77063; 77067 ==

== ENCOUNTER 2024-03-23 07:16 | Outpatient (CLI) | payer MEDICARE | END 2024-03-23 07:17 | disposition home or self-care (01) | LOC: SCSMRI 07:16 | PROVIDERS: ATTEND Neurological Surgery | DX: M51.26 Other intervertebral disc displacement, lumbar region (principal); M47.816 Spondylosis without myelopathy or radiculopathy, lumbar region; M51.36 Other intervertebral disc degeneration, lumbar region; M51.37 Other intervertebral disc degeneration, lumbosacral region; M48.061 Spinal stenosis, lumbar region without neurogenic claudication; M43.16 Spondylolisthesis, lumbar region; M47.817 Spondylosis without myelopathy or radiculopathy, lumbosacral region; M47.815 Spondylosis without myelopathy or radiculopathy, thoracolumbar region | CPT/HCPCS: 72148 ==

== ENCOUNTER 2024-05-06 08:32 | Outpatient (CLI) | payer MEDICARE | END 2024-05-06 08:33 | disposition home or self-care (01) | LOC: SCSMRI 08:32 | PROVIDERS: ATTEND Neurological Surgery | DX: R20.0 Anesthesia of skin (principal); R26.81 Unsteadiness on feet; M48.02 Spinal stenosis, cervical region; M47.812 Spondylosis without myelopathy or radiculopathy, cervical region; M50.30 Other cervical disc degeneration, unspecified cervical region; M47.813 Spondylosis without myelopathy or radiculopathy, cervicothoracic region | CPT/HCPCS: 72141 ==

== ENCOUNTER 2025-06-01 14:00 | Inpatient (IN) | payer MEDICARE ==
[2025-06-01 14:24] VITALS: BMI 27.2
[2025-06-08] MEDS ORDERED: Heparin 10,000 UNITS/ 10 ML VIAL ONE (06:44)
[2025-06-08] MEDS ORDERED: Lidocaine 1% (PF) 30 ML VIAL ONE (07:12)
[2025-06-08] MEDS ORDERED: Etomidate 40 MG (20 mL) VIAL ONE (07:12)
[2025-06-08] MEDS ORDERED: Ondansetron PF 4 MG/2 ML Vial ONE (07:12)
[2025-06-08] MEDS ORDERED: SUGAMMADEX SODIUM 200 MG/2 ML VIAL ONE (07:30)
[2025-06-08] MEDS ORDERED: fentaNYL PF 100 MCG/2 ML SYRINGE ONE (07:30)
[2025-06-08] MEDS ORDERED: PROPOFOL 200 MG/20 ML VIAL ONE (07:52)
[2025-06-08] MEDS ORDERED: Rocuronium Bromide 10 MG/ML (10ML VIAL) ONE (07:52)
[2025-06-08] MEDS ORDERED: Iopamidol 370 76% 100 ML VIAL ONE (09:06)
== END 2025-06-08 12:43 | disposition home or self-care (01) | DRG 274 ==
LOC: SURG A 06-08 06:00
PROVIDERS: ADMIT Internal Medicine Cardiovascular Disease; ATTEND Internal Medicine Cardiovascular Disease
PROC: 02L73DK Occlusion of Left Atrial Appendage with Intraluminal Device, Percutaneous Approach (ICD-10-PCS; principal; 2025-06-08)
DX: I48.0 Paroxysmal atrial fibrillation (principal); Z00.6 Encounter for examination for normal comparison and control in clinical research program; I27.20 Pulmonary hypertension, unspecified; I10 Essential (primary) hypertension; E78.5 Hyperlipidemia, unspecified; I44.7 Left bundle-branch block, unspecified; I65.23 Occlusion and stenosis of bilateral carotid arteries; G47.33 Obstructive sleep apnea (adult) (pediatric); M19.90 Unspecified osteoarthritis, unspecified site; F41.9 Anxiety disorder, unspecified; Z96.653 Presence of artificial knee joint, bilateral; Z96.641 Presence of right artificial hip joint; Z95.2 Presence of prosthetic heart valve; Z86.73 Personal history of transient ischemic attack (TIA), and cerebral infarction without residual deficits; Z91.048 Other nonmedicinal substance allergy status; Z88.8 Allergy status to other drugs, medicaments and biological substances; Z98.890 Other specified postprocedural states; Z85.820 Personal history of malignant melanoma of skin
CPT/HCPCS: 33340; 85347; 86850; 86900; 86901; 93312; C1753; C1760; C1889; C1893; C1894; J1100; J1644; J2003; J2405; J2704; J2720; J3010; Q9967

== ENCOUNTER 2025-06-01 14:05 | Outpatient (CLI) | payer MEDICARE ==
[2025-06-01 15:12] LABS: #Basophils 0.06 10x3/uL (0.0-0.2); #Eosinophils 0.12 10x3/uL (0.0-0.7); #Monocytes 0.70 10x3/uL (0.11-0.59); #Neutrophils 4.65 10x3/uL (1.40-6.50); %Basophils 0.8 % (0.0-1.0); %Eosinophils 1.6 % (0.0-10.0); %Lymphocytes 25.0 % (21.0-51.0); %Monocytes 9.5 % (0.0-10.0); %Neutrophils 63.0 % (42.0-75.0); Hematocrit 47.5 % (36.0-47.0); Hemoglobin 15.3 g/dL (12.0-16.0); Mean Corpuscular Hemoglobin 29.4 pg (27.0-31.0); Mean Corpuscular Volume 91.2 fL (78.0-98.0); Platelet Count 242 10x3/uL (130-400); Red Blood Cell (RBC) Count 5.21 mill/uL (4.20-5.40); White Blood Cell (WBC) Count 7.39 10x3/uL (4.8-10.8)
[2025-06-01 15:30] LABS: INR-International Normal Ratio 1.1; Prothrombin Time 13.9 sec (12.0-14.7)
[2025-06-01 15:31] LABS: PTT 30.0 sec (22.9-36.1)
[2025-06-01 15:37] LABS: ALT (SGPT) 49 U/L (Less than 34); AST (SGOT) 34 U/L (11-34); Albumin 4.1 g/dL (3.1-4.5); Alkaline Phosphatase 64 U/L (40-110); Anion Gap 13 mmol/L (10-20); BUN (Urea Nitrogen) 22 mg/dL (9.8-20.1); Bilirubin, Total 0.6 mg/dL (0.3-1.2); Calc. Creatinine Clearance 0 mL/min (70-130); Calcium 9.5 mg/dL (7.8-10.44); Carbon Dioxide 28 mmol/L (23-31); Chloride 104 mmol/L (98-107); Globulin 2.6 g/dL (2.4-3.5); Glucose 99 mg/dL (83-110); Potassium 4.1 mmol/L (3.5-5.1); Sodium 141 mmol/L (136-145)
== END 2025-06-01 14:06 | disposition home or self-care (01) ==
LOC: LABBT 14:05
PROVIDERS: ATTEND Internal Medicine Cardiovascular Disease
DX: Z01.818 Encounter for other preprocedural examination (principal); I48.0 Paroxysmal atrial fibrillation; W19.XXXA Unspecified fall, initial encounter
CPT/HCPCS: 80053; 85025; 85610; 85730; 86850; 86900; 86901; 93005; 93010